=== PATIENT | female | born 1970 | race African-American/Black ===

== ENCOUNTER 2018-07-04 10:55 | Emergency (ER) | payer SELFPAY ==
[2018-07-04] MEDS ORDERED: CLONIDINE HCL 0.2 MG TABLET PO ONE (11:11)
--- NOTE | 2018-07-04 11:12 | ER Document Report ---
ED Medical Screen (RME) - General Chief Complaint: Edema Stated Complaint: SWELLING Time Seen by Provider: 07/04/18 11:10 Mode of Arrival: Ambulatory Information source: Patient - HPI Patient complains to provider of: swelling of legs, face, L arm numb Onset: Yesterday - pt with h/o HTN with c/o swelling of legs and face andL arm numbness for the past 1-2 days. - Related Data Allergies/Adverse Reactions: No Known Allergies Allergy (Unverified 07/04/18 11:07) Past Medical History - Social History Chew tobacco use (# tins/day): No Frequency of alcohol use: Rare Drug Abuse: None Renal/ Medical History: Denies: Hx Peritoneal Dialysis Physical Exam - Vital signs Vitals: Temp Pulse Resp BP Pulse Ox 98.7 F 96 14 157/110 H 97 07/04/18 11:04 07/04/18 11:04 07/04/18 11:04 07/04/18 11:04 07/04/18 11:04 Course - Vital Signs Vital signs: Temp Pulse Resp BP Pulse Ox 98.7 F 94 14 157/106 H 97 07/04/18 11:05 07/04/18 11:05 07/04/18 11:05 07/04/18 11:05 07/04/18 11:05
[2018-07-04 11:35] LABS: APPEARANCE,URINE SLIGHTLY-CLOUDY; BILIRUBIN,URINE NEGATIVE (NEGATIVE); COLOR,URINE YELLOW; GLUCOSE, URINE NEGATIVE (NEGATIVE); KETONES,URINE NEGATIVE (NEGATIVE); LEUKOCYTE ESTERASE,URINE NEGATIVE (NEGATIVE); NITRITE,URINE NEGATIVE (NEGATIVE); PROTEIN,URINE NEGATIVE (NEGATIVE); URINE SPECIFIC GRAVITY 1.023
[2018-07-04 11:52] LABS: ABSOLUTE BASOPHILS # (AUTO) 0.1 10^3/uL (0.0-0.2); ABSOLUTE EOSINOPHILS # (AUTO) 0.2 10^3/uL (0.0-0.6); ABSOLUTE LYMPHOCYTES (AUTO) 3.3 10^3/uL (0.5-4.7); ABSOLUTE MONOCYTES (AUTO) 0.5 10^3/uL (0.1-1.4); ABSOLUTE NEUT (AUTO) 5.1 10^3/uL (1.7-8.2); BASOPHILS % (AUTO) 0.6 % (0-2); EOSINOPHILS % (AUTO) 2.2 % (0-6); HEMOGLOBIN 14.3 g/dL (12.0-15.5); LYMPHOCYTES % (AUTO) 35.8 % (13-45); MEAN CORPUSCULAR HEMOGLOBIN 29.2 pg (27.0-33.4); MEAN CORPUSCULAR VOLUME 86 fl (80-97); MONOCYTES % (AUTO) 5.2 % (3-13); PLATELET COUNT 341 10^3/uL (150-450); RED BLOOD COUNT 4.89 10^6/uL (3.72-5.28); RED CELL DISTRIBUTION WIDTH 14.3 % (11.5-14.0); SEGMENTED NEUTROPHILS % (AUTO) 56.2 % (42-78); TOTAL CELLS COUNTED % (AUTO) 100 %; WHITE BLOOD COUNT 9.1 10^3/uL (4.0-10.5)
[2018-07-04 12:07] LABS: ALANINE AMINOTRANSFERASE 22 U/L (9-52); ALBUMIN 4.3 g/dL (3.5-5.0); ALKALINE PHOSPHATASE 72 U/L (38-126); ANION GAP 10 (5-19); ASPARTATE AMINO TRANSFERASE 12 U/L (14-36); BILIRUBIN,TOTAL 0.6 mg/dL (0.2-1.3); BLOOD UREA NITROGEN 11 mg/dL (7-20); CALCIUM 8.8 mg/dL (8.4-10.2); CARBON DIOXIDE 27 mmol/L (22-30); CHLORIDE 102 mmol/L (98-107); GLUCOSE 107 mg/dL (75-110); POTASSIUM 4.3 mmol/L (3.6-5.0); SODIUM 138.6 mmol/L (137-145); TOTAL PROTEIN 7.4 g/dL (6.3-8.2)
--- NOTE | 2018-07-04 12:17 | ER Document Report ---
ED General - General Chief Complaint: Edema Stated Complaint: SWELLING Time Seen by Provider: 07/04/18 11:10 Mode of Arrival: Ambulatory Notes: 48-year-old female presents emergency department with complaints of numbness to the fingers and her left hand. She states that this is been present for the last 2 days. Patient states that she does use her hands while at work. 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 She denies any alleviating or exacerbating factors. She denies any trauma or injury. Patient denies any weakness to the left hand. Patient states that she is also had swelling over her entire body for the last month. She denies any alleviating or exacerbating factors. Patient states that she does have a history of hypertension and is on hydrochlorothiazide and amlodipine. Patient has not followed up with a primary care physician. Patient states that she moved to this area 6 months ago and has not established with anyone. She denies any chest pain, shortness of breath, calf pain, throat swelling or tightness. - HPI Onset: Other - diffuse body edema for the last month. L hand numbness for the last 2 days Onset/Duration: Persistent Quality of pain: No pain Severity: None Pain Level: Denies Associated symptoms: Other - diffuse swelling, L hand numbess Exacerbated by: Denies Relieved by: Denies Similar symptoms previously: Yes Recently seen / treated by doctor: No - Related Data Allergies/Adverse Reactions: No Known Allergies Allergy (Unverified 07/04/18 11:07) Past Medical History - General Information source: Patient - Social History Smoking Status: Never Smoker Chew tobacco use (# tins/day): No Frequency of alcohol use: Rare Drug Abuse: None Family History: Reviewed & Not Pertinent Patient has suicidal ideation: No Patient has homicidal ideation: No - Past Medical History Cardiac Medical History: Reports: Hx Hypertension Renal/ Medical History: Denies: Hx Peritoneal Dialysis Past Surgical History: Reports: Hx Section, Hx Tubal Ligation Review of Systems - Review of Systems Constitutional: No symptoms reported EENT: No symptoms reported Cardiovascular: No symptoms reported Respiratory: No symptoms reported Gastrointestinal: No symptoms reported Genitourinary: No symptoms reported Female Genitourinary: No symptoms reported Musculoskeletal: No symptoms reported Skin: No symptoms reported Hematologic/Lymphatic: No symptoms reported Neurological/Psychological: No symptoms reported -: Yes All other systems reviewed and negative Physical Exam - Vital signs Vitals: Temp Pulse Resp BP Pulse Ox 98.7 F 96 14 157/110 H 97 07/04/18 11:04 07/04/18 11:04 07/04/18 11:04 07/04/18 11:04 07/04/18 11:04 - Notes Notes: PHYSICAL EXAMINATION: GENERAL: Well-appearing, well-nourished and in no acute distress. HEAD: Atraumatic, normocephalic. EYES: Pupils equal round and reactive to light, extraocular movements intact, conjunctiva are normal. ENT: Nares patent, oropharynx clear without exudates. Moist mucous membranes. NECK: Normal range of motion, supple without lymphadenopathy LUNGS: Breath sounds clear to auscultation bilaterally and equal. No wheezes rales or rhonchi. HEART: Regular rate and rhythm without murmurs ABDOMEN: Soft, nontender, nondistended abdomen. No guarding, no rebound. No masses appreciated. Female : deferred Musculoskeletal: Normal range of motion, no pitting or edema. No cyanosis. No calf tenderness to palpation. Numbness to the index finger and middle finger. Full range of motion to the R ringers. 2+ radial pulse. Negative tinel's sign. NEUROLOGICAL: Cranial nerves grossly intact. Normal speech, normal gait. Normal motor exams PSYCH: Normal mood, normal affect. SKIN: Warm, Dry, normal turgor, no rashes or lesions noted. Course - Re-evaluation Re-evalutation: 07/04/18 15:42 Physical exam remarkable for L hand numbness in the median nerve distribution. No swelling noted to the face, arms, legs. Labs obtained. No acute process identified. Patient likely has carpal tunnel syndrome. I will prescribe the patient a wrist splint. I instructed the patient to follow-up with her primary care physician and orthopedic surgery this week. I told the patient to continue taking her medication as directed and to return to the emergency department for any worsening symptoms. - Vital Signs Vital signs: Temp Pulse Resp BP Pulse Ox 98.7 F 94 14 113/71 100 07/04/18 11:05 07/04/18 11:05 07/04/18 15:02 07/04/18 15:02 07/04/18 15:02 - Laboratory Result Diagrams: 07/04/18 11:39 07/04/18 11:39 Laboratory results interpreted by me: 07/04/18 07/04/18 07/04/18 11:16 11:39 11:39 RDW 14.3 H AST 12 L Urine Urobilinogen 2.0 H Discharge - Discharge Clinical Impression: Carpal tunnel syndrome Qualifiers: Laterality: left Qualified Code(s): G56.02 - Carpal tunnel syndrome, left upper limb Condition: Stable Disposition: HOME, SELF-CARE Instructions: Carpal Tunnel Syndrome ([facility]) Referrals: MADDY STACK MD [ACTIVE STAFF] - Follow up as needed
--- NOTE | 2018-07-04 13:20 | RADIOLOGY REPORT (SQ) ---
EXAM DESCRIPTION: CHEST SINGLE VIEW COMPLETED DATE/TIME: 07/04/2018 1:02 pm REASON FOR STUDY: chest pain COMPARISON: None. EXAM PARAMETERS: NUMBER OF VIEWS: One view. TECHNIQUE: Single frontal radiographic view of the chest acquired. RADIATION DOSE: NA LIMITATIONS: None. FINDINGS: LUNGS AND PLEURA: No opacities, masses or pneumothorax. No pleural effusion. MEDIASTINUM AND HILAR STRUCTURES: No masses. Contour normal. HEART AND VASCULAR STRUCTURES: Heart normal in size. Normal vasculature. BONES: No acute findings. HARDWARE: None in the chest. OTHER: No other significant finding. IMPRESSION: NO ACUTE RADIOGRAPHIC FINDING IN THE CHEST. TECHNICAL DOCUMENTATION: JOB ID: [id number] [id number] 2010 [employer]- All Rights Reserved Reading location - IP/workstation name: [email or web address]
[2018-07-04 15:55] VITALS: BP 123/95
--- NOTE | 2018-07-04 23:47 | EKG REPORT ---
SEVERITY:- BORDERLINE ECG - SINUS RHYTHM LVH BY VOLTAGE BORDERLINE T ABNORMALITIES, INFERIOR LEADS : Confirmed by: Nuzhat Monet 04-Jul-2018 23:47:31
== END 2018-07-04 15:56 | disposition home or self-care (01) ==
LOC: ER 10:55
DX: G56.02 Carpal tunnel syndrome, left upper limb (principal); R20.0 Anesthesia of skin; I10 Essential (primary) hypertension; Z79.899 Other long term (current) drug therapy
CPT/HCPCS: 93005; 99285; 36415; 85025; 81025; 80053; 81001; 84484; 71045; 93010; L3908